=== PATIENT | female | born 1965 | race Caucasian/White ===

== ENCOUNTER → 2022-04-20 | Day surgery (SDC) | payer BC, OTHER ==
[2022-04-17 12:24] LABS: ANION GAP 13.5 mmol/L (8-16); CALCIUM 9.1 mg/dL (8.4-10.2); CREATININE, SERUM 0.8 mg/dL (0.57-1.11); POTASSIUM 4.5 mmol/L (3.5-5.1)
[~2022-04-20] MED LIST: ADVAIR 100-501 EACH INH; HYDROCODONE/APAP 5MG-325MG TAB ONE; JANUVIA100 MG PO; LISINOPRIL5 MG PO; METFORMIN HCL500 MG PO; OZEMPIC0.25 MG/0. SC
[2022-04-20 09:00] VITALS: BP 148/83
== END | disposition home or self-care (01) ==
LOC: OR 07:44
PROVIDERS: ATTEND Specialist
DX: G56.03 Carpal tunnel syndrome, bilateral upper limbs (principal); J45.909 Unspecified asthma, uncomplicated; E11.9 Type 2 diabetes mellitus without complications; I10 Essential (primary) hypertension; Z88.2 Allergy status to sulfonamides; Z01.810 Encounter for preprocedural cardiovascular examination; Z01.812 Encounter for preprocedural laboratory examination; Z20.822 Contact with and (suspected) exposure to COVID-19; Z79.84 Long term (current) use of oral hypoglycemic drugs; Z79.899 Other long term (current) drug therapy
CPT/HCPCS: 0223U; 29848; 36415 ×2; 80048; 82948; 93005; J0690